=== PATIENT | male | born 1950 | race Caucasian/White ===

== ENCOUNTER → 2016-08-01 | Outpatient (CLI) | payer OTHER, BC | LOC: CIMAGING 10:19 | PROVIDERS: ATTEND Family Medicine | DX: M25.851 Other specified joint disorders, right hip (principal); M25.852 Other specified joint disorders, left hip | CPT/HCPCS: 73521-PO ==

== ENCOUNTER 2016-12-09 12:38 | Observation (INO) | payer OTHER ==
[2016-12-09 13:12] LABS: % IMMATURE GRANULYOCYTES 0.2 % (0.0-1.1); ABSOLUTE IMMATURE GRANULOCYTES 0.02 10^3/uL (0.00-0.10); ADD DIFF? NO; ADD MORPH? NO; ADD SCAN? NO; ATYPICAL LYMPHOCYTE FLAG 0 (0-99); FRAGMENT RBC FLAG 0 (0-99); HEMATOCRIT 41.8 % (40.0-51.0); LEFT SHIFT FLG 0 (0-99); LIPEMIA HEMOLYSIS FLAG 90 (0-99); MEAN CELL HEMOGLOBIN 32.6 pg (27.9-34.1); MEAN CELL HEMOGLOBIN CONCENTR. 35.9 g/dL (32.4-36.7); MEAN CELL VOLUME 90.9 fL (81.5-99.8); MEAN PLATELET VOLUME 10.7 fL (8.7-11.7); PLATELET CLUMPS FLAG 0 (0-99); PLATELET COUNT 263 10^3/uL (150-400); RED CELL DISTRIBUTION WIDTH 13.2 % (11.5-15.2)
--- NOTE | 2016-12-09 13:13 | EDPHY ---
H & P Stated Complaint: left facial pain, chest discomfort, tinglinging in left arm Time Seen by Provider: 12/09/16 12:42 HPI/ROS: Chief Complaint: Left facial weakness, chest tightness, tingling left arm HPI: 58-year-old male with a history of borderline diabetes the and infrequent migraine headaches is presenting complaining of left facial numbness and headache which began yesterday morning. Patient took 2 Aleve yesterday morning and the headache is improved but is continuing to have some left facial numbness. He also noticed last night and this morning some difficulty word finding and has been having some numbness in his left arm. He has had some mild lower chest discomfort this morning. 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 This was not associated with headache and occurred after he had been out in the heat and sleep deprived. At that time he did not have any difficulty with word finding or tingling in any of his extremities. Denies any recent illness. No fevers or chills. Some nausea but no vomiting. No shortness of breath. ROS: 10 point Review of Systems is negative except as noted in the HPI. PMH: Diabetes Social History: No smoking, occasional alcohol, no recreational drug use Family History: non-contributory Physical Exam: Gen: Awake, Alert, No Distress HEENT: Nose: no rhinorrhea Eyes: PERRLA, EOMI Mouth: Moist mucosa Neck: Supple, no JVD Chest: nontender, lungs clear to auscultation Heart: S1, S2 normal, no murmur Abd: Soft, non-tender, no guarding Back: no CVA tenderness, no midline tenderness Ext: no edema, non-tender Skin: no rash Neuro: See NIH scale. Patient has some left facial droop including his left eyelid. He has decreased sensation in his left cheek and left jaw. He is describing a very mild decreased sensation in his left forehead compared to his right however this is not nearly as significant as in his left face. He also has some left upper eyelid droop and left facial droop. He is also describing some decreased sensation below his left clavicle compared to his right. - Medical/Surgical History Hx Asthma: Yes Hx Chronic Respiratory Disease: No Hx Diabetes: No Hx Cardiac Disease: Yes Hx Renal Disease: No Hx Cirrhosis: No Hx Alcoholism: No Hx HIV/AIDS: No Hx Splenectomy or Spleen Trauma: No Other PMH: HTN. FINGER, KNEE SURGERY - Social History Smoking Status: Former smoker Constitutional: Initial Vital Signs Temperature (C) 36.6 C 12/09/16 12:46 Heart Rate 78 12/09/16 12:46 Respiratory Rate 16 12/09/16 12:46 Blood Pressure 104/65 12/09/16 12:46 O2 Sat (%) 95 12/09/16 12:46 O2 Delivery Mode Room Air Allergies/Adverse Reactions: No Known Allergies Allergy (Verified 12/09/16 12:44) Home Medications: Medication Instructions Recorded Aspirin EC [Aspirin EC 81 mg (OTC)] 81 mg PO DAILY 10/09/11 Enalapril Maleate 20 mg PO 10/09/11 Finasteride 5 mg PO 10/09/11 ALBUTEROL SULFATE 08/26/15 Losartan-Hctz 100-25 mg Tab 08/26/15 Metformin HCl 08/26/15 Temazepam 08/26/15 Albuterol [Proventil Neb] 12/09/16 Singulair 10 mg (*) 12/09/16 Medical Decision Making - Diagnostics EKG Interpretation: ECG time 12:49 p.m. sinus rhythm with a rate of 75. There is a left anterior fascicular block. Normal intervals. No acute ST or T-wave changes. ECG is unchanged from August 05, 2014. Imaging Results: Imaging Impressions Head CT 12/09/16 13:05 Impression: Normal. Results called and discussed with Yoni Kathleen MD at 12/09/2016 13:27. Imaging: Discussed imaging studies w/ physically impaired teacher Radiologist ED Course/Re-evaluation: Case discussed with Dr. Ro, neurology. He is recommending that the patient needs an urgent stroke workup. He would like me to contact the stroke service at [facility] and arrange for transport. Case discussed with Dr. Orlin Chapa, [facility] Neurology. He believes that given the duration and the paucity of symptoms, and a history of migraine in the past this is likely a atypical migraine. He is recommending the patient be transferred to medical floor for further evaluation. He does not feel that patient will require an urgent stroke workup at this time. I have discussed with Dr. Jones, hospitalist. She will accept the patient transfer for further evaluation at [facility]. - Data Points Laboratory Results: Laboratory Results 12/09/16 12:52 12/09/16 12:52 12/09/16 12/09/16 12:52 12:52 WBC 9.07 10^3/uL 10^3/uL (3.80-9.50) RBC 4.60 10^6/uL 10^6/uL (4.40-6.38) Hgb 15.0 g/dL g/dL (13.7-17.5) Hct 41.8 % % (40.0-51.0) MCV 90.9 fL fL (81.5-99.8) MCH 32.6 pg pg (27.9-34.1) MCHC 35.9 g/dL g/dL (32.4-36.7) RDW 13.2 % % (11.5-15.2) Plt Count 263 10^3/uL 10^3/uL (150-400) MPV 10.7 fL fL (8.7-11.7) Neut % (Auto) 61.7 % % (39.3-74.2) Lymph % (Auto) 28.1 % % (15.0-45.0) Steele % (Auto) 9.0 % % (4.5-13.0) Eos % (Auto) 0.8 % % (0.6-7.6) Baso % (Auto) 0.2 % L % (0.3-1.7) Nucleat RBC Rel Count 0.0 % % (0.0-0.2) Absolute Neuts (auto) 5.59 10^3/uL 10^3/uL (1.70-6.50) Absolute Lymphs (auto) 2.55 10^3/uL 10^3/uL (1.00-3.00) Absolute Monos (auto) 0.82 10^3/uL H 10^3/uL (0.30-0.80) Absolute Eos (auto) 0.07 10^3/uL 10^3/uL (0.03-0.40) Absolute Basos (auto) 0.02 10^3/uL 10^3/uL (0.02-0.10) Absolute Nucleated RBC 0.00 10^3/uL 10^3/uL (0-0.01) Immature Gran % 0.2 % % (0.0-1.1) Immature Gran # 0.02 10^3/uL 10^3/uL (0.00-0.10) Sodium 139 mEq/L mEq/L (134-144) Potassium 3.4 mEq/L L mEq/L (3.5-5.2) Chloride 101 mEq/L mEq/L (97-110) Carbon Dioxide 24 mEq/l mEq/l (22-31) Anion Gap 14 mEq/L mEq/L (8-16) BUN 27 mg/dL H mg/dL (7-23) Creatinine 1.0 mg/dL mg/dL (0.7-1.3) Estimated GFR > 60 Glucose 103 mg/dL H mg/dL (70-100) Calcium 9.5 mg/dL mg/dL (8.5-10.4) Troponin I < 0.012 ng/mL ng/mL (0.000-0.034) Departure - Departure Disposition: [facility] Inpatient Acute Clinical Impression: Transient cerebral ischemia Condition: Good Referrals: PATRIA GRAYSON [Primary Care Provider] - As per Instructions NIH Stroke Scale Date of Exam: 12/09/16 Time of Exam: 13:00 Level of Consciousness: Alert LOC Questions: Answers Both LOC Commands: Performs Both Correctly Best Gaze: Normal Visual: No Visual Loss Facial Palsy: Minor Paralysis Motor Arm-Left: No Drift Motor Arm-Right: No Drift Motor Leg-Left: No Drift Motor Leg-Right: No Drift Limb Ataxis: Absent Sensory: Mild/Mod Sensory Loss Best Language: No Aphasia Dysarthria: Normal Extinction and Inattention (Neglect): No Abnormality NIH Scale Score: 2
[2016-12-09 13:23] LABS: ANION GAP 14 mEq/L (8-16); CALCIUM 9.5 mg/dL (8.5-10.4); CARBON DIOXIDE 24 mEq/l (22-31); CHLORIDE 101 mEq/L (97-110); GLOMERULAR FILTRATION RATE > 60; GLUCOSE 103 mg/dL (70-100); POTASSIUM 3.4 mEq/L (3.5-5.2); SODIUM 139 mEq/L (134-144)
[2016-12-09 13:35] LABS: TROPONIN I < 0.012 ng/mL (0.000-0.034)
--- NOTE | 2016-12-09 15:54 | CPEKG ---
Heart Rate: 67 RR Interval: 896 P-R Interval: 176 QRSD Interval: 104 QT Interval: 412 QTC Interval: 435 P [place]: 30 QRS [place]: -59 T Wave [place]: 33 EKG Severity - ABNORMAL ECG - EKG Impression: SINUS RHYTHM EKG Impression: LEFT ANTERIOR FASCICULAR BLOCK Electronically Signed By: Johanna Mendoza 10-Dec-2016 10:26:44
[2016-12-09] MEDS ORDERED: POTASSIUM CL 20 MEQ TAB PO ONE (16:04)
--- NOTE | 2016-12-09 16:39 | GHP ---
[f rep st] HISTORY AND PHYSICAL DATE OF ADMISSION: 12/09/2016 CHIEF COMPLAINT: Left facial droop, eyelid lag. HISTORY OF PRESENT ILLNESS: A 66-year-old male with a prior history of migraines, Sinha palsy in 2011, presenting with left facial weakness. He says he has had 4 migraines in this past year. Yesterday morning at 8 a.m., he had developed a migraine with a mild left facial droop that is increased from his normal mild facial droop. He took 2 Aleve and went to bed. He ate dinner late that night and awoke feeling fine this morning. He was over at [employer] volunteering today at approximately 11 a.m., but had a hard time reading with his left eye. He could not find the words and felt that his speech was slurred. He had some tingling in the left arm and it appeared to be weaker when he was over at the urgent care clinic. When he was diagnosed with Sinha palsy, it was associated with a headache and had occurred after being in the sun for 10 hours and being sleep deprived. At that time, he did not have any difficulty word finding or any associated tingling. He noticed he was nauseated this morning with the other symptoms. For the past couple years, he has felt palpitations or a sensation in his chest that leads to coughing. Denies chest pain, shortness of breath, PND, or pillow orthopnea. The patient says his mouth will get droopy when he is tired. He has had normal p.o. intake. No fevers, chills, or sweats. REVIEW OF SYSTEMS: I completed a 10-point review of systems; negative except as noted in HPI. PAST MEDICAL HISTORY: Prediabetes, migraines, 4 this past year, Sinha palsy in 2011, chronic cough, seen by Dr. Garcia, VICENTA, grade 1 diastolic dysfunction, mild AI. PAST SURGICAL HISTORY: Right finger, left knee arthroscopic for meniscus and right knee surgery. SOCIAL HISTORY: Lives in [place]. 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 Alcohol: A glass of wine a week. No illicits. FAMILY HISTORY: Dad had a CVA in his 70s. Mother is 94, has Alzheimer's. HOME MEDICATIONS: Finasteride, losartan-hydrochlorothiazide 100-25 mg, aspirin 81 mg daily, albuterol as needed, Singulair 10 mg daily, temazepam 50 mg at bedtime p.r.n. ALLERGIES: No known drug allergies. PHYSICAL EXAMINATION: VITAL SIGNS: Temperature 35.9, blood pressure 113/73, heart rate 60s, respiration 18, 96% on room air. GENERAL: A well-appearing male sitting up in bed, in no acute distress. HEENT: PERRLA. EOMI. Oropharynx clear. CARDIOVASCULAR: Regular rate and rhythm. No murmurs, gallops, or rubs. LUNGS: Clear to auscultation. No crackles or wheezing. ABDOMEN: Soft, nontender, nondistended. Positive bowel sounds. GENITOURINARY : No suprapubic tenderness. MUSCULOSKELETAL: 5/5 upper and lower extremity strength. NEUROLOGIC: 2 through 12 intact. Decreased sensation over the left cheek compared to the right. Left eyelid no longer drooping. Has a mild left facial droop. +2 biceps patellar reflex. PSYCHIATRIC: Alert and oriented x3. IMAGING: CT head: Normal. No mass or hemorrhage. LABORATORY DATA: WBC is 9, hemoglobin 15, hematocrit 41, platelets 263. Sodium 139, potassium 3.4, chloride 101, anion gap 14, BUN is 27, creatinine is 1, glucose 103, calcium 9.5. Troponin less than 0.012. ELECTROCARDIOGRAM: Pending. ASSESSMENT/PLAN: 1. Left facial droop/left arm tingling: Differential includes atypical migraine versus Sinha palsy versus transient ischemic attack. Dr. Kathleen spoke with Dr. Ro with Neurology as well as Orlin Chapa at [facility]. Given the duration of positive symptoms, no tPA is warranted. Will further evaluate with an MRI of the brain, monitor on telemetry as well as an echocardiogram. He does report palpitations. Will have PT, OT, and speech evaluate. Check lipids. Neurology to consult in the morning. Will resume aspirin. 2. Hypertension, under good control: Will resume home medications. 3. Prediabetes: Check a hemoglobin A1c. 4. Chronic cough, controlled with inhaler and Singulair. 5. Diet: Regular. 6. Deep venous thrombosis prophylaxis: SCDs. DISPOSITION: Patient warrants observation admission given concern for possible TIA versus atypical migraine warranting further imaging and neurology consultation. /[id number]/MODL MTDD
[2016-12-09] MEDS ORDERED: ALBUTEROL 200 PUFFS/18 GM MDI IH PRN (20:57)
[2016-12-09] MEDS ORDERED: TEMAZEPAM 15 MG CAP PO SCH (21:00)
[2016-12-10 03:08] LABS: HEMOGLOBIN A1C 6.4 % (4.0-6.0)
[2016-12-10 05:16] LABS: ALANINE AMINOTRANSFERASE 41 IU/L (21-72); ALBUMIN 3.6 g/dL (3.5-5.0); ALKALINE PHOSPHATASE 50 IU/L (38-126); ANION GAP 11 mEq/L (8-16); ASPARTATE AMINOTRANSFERASE 24 IU/L (17-59); BILIRUBIN,TOTAL 0.8 mg/dL (0.1-1.4); CALCIUM 8.8 mg/dL (8.5-10.4); CARBON DIOXIDE 25 mEq/l (22-31); CHLORIDE 103 mEq/L (97-110); CHOLESTEROL 158 mg/dL (140-220); CHOLESTEROL/HDL RATIO 5.85 RATIO (1.00-4.97); CREATININE 0.9 mg/dL (0.7-1.3); GLOMERULAR FILTRATION RATE > 60; GLUCOSE 107 mg/dL (70-100); HIGH DENSITY LIPOPROTEIN 27 mg/dL (40-65); LDL/HDL RATIO 3.63 RATIO (1.00-3.64); LOW DENSITY LIPOPROTEIN 98 mg/dL (80-100); NON-HIGH DENSITY LIPOPROTEIN 131 mg/dL (90-129); POTASSIUM 3.5 mEq/L (3.5-5.2); SODIUM 139 mEq/L (134-144); TOTAL PROTEIN 5.8 g/dL (6.3-8.2); TRIGLYCERIDE 165 mg/dL (40-150); VERY LOW DENSITY LIPOPROTEINS 33 mg/dL (8-25)
[2016-12-10] MEDS ORDERED: IOPAMIDOL (ISOVUE 370) 100 ML BTL IV ONE (07:50)
[2016-12-10 08:29] VITALS: TEMP 98.4
[2016-12-10] MEDS ORDERED: HYDROCHLOROTHIAZIDE 25 MG TAB PO SCH (09:00)
[2016-12-10] MEDS ORDERED: MONTELUKAST SODIUM 10 MG TAB PO SCH (09:00)
[2016-12-10] MEDS ORDERED: ASPIRIN 81 MG CHEWABLE TAB PO SCH (09:00)
[2016-12-10] MEDS ORDERED: LOSARTAN POTASSIUM 50 MG TAB PO SCH (09:00)
[2016-12-10] MEDS ORDERED: ASPIRIN EC 81 MG TAB PO SCH (09:00)
[2016-12-10] MEDS ORDERED: FINASTERIDE 5 MG TAB PO SCH (09:00)
[2016-12-10] MEDS: metFORMIN HCL 500 MG TAB PO SCH ×2 (09:22→09:59)
[2016-12-10] MEDS ORDERED: ONDANSETRON DISINTEGRATING 4 MG TAB PO PRN (09:45)
[2016-12-10] MEDS ORDERED: ONDANSETRON 4 MG/2 ML VIAL IVP PRN (09:45)
[2016-12-10] MEDS ORDERED: ACETAMINOPHEN 325 MG TAB PO PRN (09:45)
--- NOTE | 2016-12-10 11:40 | ECHO ---
[id number] + + [address] : : [place] [address] : : [phone] + Adult Echocardiographic Report + --+ :Name: ALLEN CERNAY RStudy Date: 12/10/2016 07:44 AM : : Hospital Admission Number: [id number] Location: 3 47: :: 1950 Gender: Male Height: 69 in : :Age: 66 yrs Race: WH Weight: 180 lb : :Reason For Study: Ischemic stroke : : BSA: 2.0 meters2 : + --+ MMode/2D Measurements \T\ Calculations IVSd: 0.79 cm LVIDd: 4.7 cm FS: 48.0 % Ao root diam: LVPWd: 0.96 cm LVIDs: 2.5 cm EDV(Teich): 3.6 cm 104.1 ml LA dimension: ESV(Teich): 3.7 cm 21.5 ml EF(Teich): 79.4 % LVLd ap4: 7.6 cm SV(MOD-sp4): EDV(MOD-sp4): 33.0 ml 45.0 ml LVLs ap4: 6.4 cm ESV(MOD-sp4): 12.0 ml EF(MOD-sp4): 73.3 % Normal Measurement Values: + + :LVIDd (3.5-5.7cm) IVSd (0.6-1.1cm) LVPWd (0.6-1.1cm) Aortic Root (2.0-3.7cm)Left Atrium (1.5-4.0cm): :LV Vol(d) (76-115ml) LV Vol(s) (29-48ml) Ejec Fraction (50-65%)PV Shahid (0.6- 1.2m/s) TV Shahid (0.4-1.0m/s) : :MV E Shahid (0.8-1.0m/s)MV A Shahid (0.3-1.0m/s)LVOT Shahid (0.7-1.2m/s) Asc Ao Shahid ( 0.9-1.8m/s) : + + Doppler Measurements \T\ Calculations MV E max shahid: 78.0 cm/sec Ao V2 max: 119.4 cm/sec TR max shahid: 213.1 cm/sec MV A max shahid: 54.3 cm/sec Ao max P.7 mmHg TR max P.2 mmHg MV E/A: 1.4 RAP systole: 5.0 mmHg RVSP(TR): 23.2 mmHg Left Ventricle The left ventricle is normal in size. There is normal left ventricular wall thickness. Left ventricular systolic function is normal. Ejection Fraction = 65-70%. No regional wall motion abnormalities noted. Right Ventricle The right ventricle is normal in size and function. Atria The left atrial size is normal. The right atrium is mildly dilated. Injection of contrast documented an interatrial shunt. Mitral Valve The mitral valve is normal in structure and function. There is no evidence of mitral valve prolapse. There is no mitral valve stenosis. There is trace mitral regurgitation. Tricuspid Valve Normal tricuspid valve. There is mild tricuspid regurgitation. Right ventricular systolic pressure is normal. Aortic Valve The aortic valve is trileaflet. The aortic valve opens well. Mild aortic calcification. There is no aortic stenosis. Trace aortic regurgitation. Pulmonic Valve The pulmonic valve is normal in structure and function. Trace pulmonic valvular regurgitation. Great Vessels The aortic root is normal size. Pericardium/Pleural There is no pericardial effusion. Conclusion A complete two-dimensional transthoracic echocardiogram was performed (2D, M-mode, Doppler and color flow Doppler). Left ventricular systolic function is normal. Ejection Fraction = 65-70%. The right atrium is mildly dilated. Injection of contrast documented an interatrial shunt. There is trace mitral regurgitation. There is mild tricuspid regurgitation. Right ventricular systolic pressure is normal. Mild aortic calcification. Trace aortic regurgitation. Trace pulmonic valvular regurgitation. Final Reading Physician: Sarita Davis signed on 12/10/2016 11:39 AM Ordering Physician: Brenda Jones Performed By: Abigail Kincaid RDCS
[2016-12-10 11:57] VITALS: BP 114/72; PULSE 72; RESP 16; O2SAT 93
--- NOTE | 2016-12-10 13:17 | GCON ---
[f rep st] CONSULTATION NEUROLOGY CONSULTATION REFERRING PHYSICIAN: Brenda Jones MD CHIEF COMPLAINT: Headache and facial paresthesias. BILLING INFORMATION: 70 total minutes on the floor today reviewing the patient' s history, imaging records, and in direct counseling with the patient. 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 He has a nearly lifelong history of migraine with aura described as auras of scintillating scotomas followed by unilateral throbbing headaches. He typically has 5 a year. Then, in 2011, the patient had an episode of left-sided Sinha's palsy. Interestingly, since his Sinha's palsy, he typically gets left facial paresthesias with his migraine with aura after having Sinha's palsy. It happens almost every single time he has a migraine. 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 He was feeling dehydrated and was fairly hot with poor air quality Friday. The patient began having his typical migraine while on the trail of a scintillating scotoma followed by a headache. He began feeling paresthesias which he describes as actually not numbness but a burning on the left side of his face. This is typical for him, so he went home and went to sleep. The next morning he got up, which would be December 09. The headache was gone, but he felt a little bit of nausea and troubles finding words. He also related that during the acute migraine, his finger tips on the left hand were tingling. This had also resolved by Friday morning. Because of persistent symptoms, especially the word-finding problems / "brain fog" on Friday, he came to the ER. He saw Dr. Kathleen at [facility] Emergency Department. I spoke to Dr. Kathleen and heard the symptoms and requested a stroke alert be initiated with telemedicine to exclude an acute neurovascular event that needed acute intervening. A head CT had been done at that point and was negative. Dr. Kathleen consulted with [facility] for an acute stroke alert. Based on that discussion, he was admitted for further evaluation at [facility]. MRI brain was entirely normal. There were no diffusion-weighted abnormalities to suggest acute infarct. He has had normal sinus rhythm on telemetry as far as I have been reported to. He does get palpitations from time to time which we will address further down in the assessment and plan. He had CT angio of the head and neck which showed no acute thrombosis or dissection. He did have a small aneurysmal change in the right distal internal carotid artery, likely incidental. He is completely back to baseline and feels well now. In his mind, this was typical of all his migraines. The only reason he came to the emergency department was the next-day brain fog symptoms which was concerning to him. For past medical history, social history, family history, home medications, and allergies, please see Dr. Jones's H and P. REVIEW OF SYSTEMS: Ten-point review of systems was done and was only pertinent to the HPI. PHYSICAL EXAMINATION: VITAL SIGNS: 114/72, temperature 36.9, heart rate 72, respirations 16. NEUROLOGIC: Higher mental function: Awake and alert, no acute distress. Very pleasant. Oriented, alert, lucid. No aphasia. Cranial nerve exam: No dysarthria, normal 2 through 7, 11, and 12. Motor exam: Normal strength, tone, and deep tendon reflexes throughout. Sensory exam normal to light touch throughout. Coordination normal in upper and lower extremities. IMPRESSION AND PLAN: 1. Complex migraine. 2. 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 3. Palpitations. Overall, my impression is that the patient experienced a complex migraine. In fact, yesterday, his migraine symptoms were not that much different than his usual migraine. I think he had the typical next-day after effects from migraines that many patients report, including trouble thinking and feeling nauseous. As he is 66 and has vascular risk factors, I recommend we complete the TIA evaluation. Specifically, he should have a 30-day outpatient event monitor and follow up with Cardiology. He can continue aspirin daily. In regard to the likely incidental aneurysm, I recommend he follow up with Dr. Jesse Huerta from [facility] for further evaluation and treatment. From my view, he can discharge home any time. He can follow up with Neurology for any further questions or concerns or problems with migraines. I have given him my contact information. We will sign off and follow up as needed. Please do not hesitate to call if there are any further questions or changes in neurologic status. Thank you for this consultation. /[id number]/MODL MTDD
--- NOTE | 2016-12-10 19:23 | GDS ---
[f rep st] DISCHARGE SUMMARY DIAGNOSES: 1. Acute migraine headache with neurologic complications. 2. Possible transient ischemic attack. A 30 day cardiac event monitor has been ordered. 3. Hypertension, currently under control. 4. Prediabetic with a hemoglobin A1c pending. CONSULTATIONS: Neurology with Dr. Garrett Ro. PROCEDURES: 1. Echocardiogram showing an EF of 65% to 70%. Right atrium is mildly dilated. Interatrial shunt is noted. There is a trace of mitral regurg, trace tricuspid regurg. RVSP is normal. Trace aortic regurgitation. 2. Brain MRI showing normal MRI of the brain without contrast. 3. CTA of the head and neck showed a normal [facility]. A small aneurysm in the right intern product marketing manager al carotid artery, and is a small amount of plaque formation on the left without flow limitation. HOSPITAL COURSE: A 66-year-old male presented with a left facial droop and a headache. There was c oncern regarding a TIA, and a TIA workup was performed, showing negative CTA of the head and neck, a nd a negative MRI scan showing only normal brain. He had a left facial droop, but also had a prior Sinha's palsy on that, but the left facial droop had resolved at the time of discharge. Neurologic c onsultation felt that the findings were consistent with a migraine syndrome and some post residual f indings. Despite that and due to the interatrial shunt, a 30 day cardiac event monitor will be orde red. DISCHARGE MEDICATIONS: Continue medications of his usual home medications are as follows: Restoril 15 mg h.s., montelukast 10 mg daily, Glucophage 500 mg b.i.d., Proscar 5 mg daily, Cozaar 50 mg bella ly, ASA 81 mg daily, hydrochlorothiazide 25 mg daily, albuterol inhaler 1-2 puffs q.4 hours p.r.n. PLAN: [facility] will send the gentleman a 30 day fashion buyer, which has been ord ered by this physician. He will follow up with Dr. Garrett Ro in 2-4 weeks, and Dr. Yung Rowe as needed. He can also follow up with Dr. Jesse Huerta regarding the carotid aneurysm. TIME: This discharge required 45 minutes, greater than 50% to juvenile counselor, coordinate his care, and arr aziza for his fashion buyer. /[id number]/MODL
--- NOTE | 2016-12-11 09:19 | ASDISCHSUM ---
Discharge Information Plan Status:Home with No Needs Medically Cleared to Leave: Discharge Date: CM D/C Disposition:Home, Routine, Self-Care ADT D/C Disposition: Projected Discharge Date: Transportation at D/C: Discharge Delay Reason: Follow-Up Date: Discharge Slot: Final Diagnosis: Placement Information Patient Contact Information Contact Name:DERICK Relationship: Address:[address] Work Phone: City:[facility] Phone: State/Zip Code:[place] [address] Email: Financial Information Financial Class: Primary Plan Desc:MEDICARE OUTPATIENT Primary Plan Number:[id number] Secondary Plan Desc:ZACK ORNELASNITY Secondary Plan Number:[id number] Assessment Information Intervention Information Intervention Type:*MORRISON-Signed Date of Service:12/10/2016 12:11 PM Patient Type:Observation Staff Member:Dottie Martin Hours: Discipline: Severity: Comment:
--- NOTE | 2016-12-13 12:50 | CPEKG ---
Heart Rate: 75 RR Interval: 800 P-R Interval: 172 QRSD Interval: 104 QT Interval: 368 QTC Interval: 411 P [place]: 37 QRS [place]: -60 T Wave [place]: 40 EKG Severity - ABNORMAL ECG - EKG Impression: SINUS RHYTHM EKG Impression: LEFT ANTERIOR FASCICULAR BLOCK Electronically Signed By: Clayton Page 14-Dec-2016 08:33:43
== END 2016-12-10 15:31 | disposition home or self-care (01) ==
LOC: CED 12:38 → CEDHOLD 14:15 → F3N 15:19
PROVIDERS: ADMIT Internal Medicine; ATTEND Internal Medicine
DX: G43.119 Migraine with aura, intractable, without status migrainosus (principal); R47.89 Other speech disturbances; I10 Essential (primary) hypertension; R73.03 Prediabetes; Z87.891 Personal history of nicotine dependence
CPT/HCPCS: 70450; 70496; 70498; 70551; 92523; 93005; 93306; 97161; 97165; 99285; G0378; G8978; G8979; G8980; G8987; G8988; G8989; G8999; G9158; G9186; Q9967; 80048-PO; 84484-PO; 85025-PO

== ENCOUNTER 2016-12-19 18:35 | Inpatient (IN) | payer OTHER ==
--- NOTE | 2016-12-19 19:30 | CPEKG ---
Heart Rate: 85 RR Interval: 706 P-R Interval: 156 QRSD Interval: 102 QT Interval: 376 QTC Interval: 447 P [place]: 35 QRS [place]: -69 T Wave [place]: 42 EKG Severity - ABNORMAL ECG - EKG Impression: SINUS RHYTHM EKG Impression: LEFT ANTERIOR FASCICULAR BLOCK Electronically Signed By: Clayton Page 20-Dec-2016 12:20:31
--- NOTE | 2016-12-19 19:32 | EDPHY ---
HPI/HX/ROS/PE/MDM Narrative: CHIEF COMPLAINT: Ventricular tachycardia on Holter monitor HISTORY OF PRESENT ILLNESS: The patient is a 66 y/o male arriving with his at the referral of his pellet preparation operator due to a 29-second episode of ventricular tachycardia witnessed on his Holter monitor today. He has a medical history that includes complex migraines, hypertension, and prediabetes. He was admitted 10 days ago for TIA symptoms as well as migraine symptoms and discharged home on a Holter monitor for 30 days. Today, he stood up to walk to the bathroom around 17:15 and felt fatigued and dizzy with some heart pounding for a few seconds. He felt completely normal before and following this episode. His pellet preparation operator called him tell him to go to the ED immediately for evaluated. The patient denies prior cardiac history. No fever, chills, chest pain, shortness of breath, vomiting, diarrhea, urinary complaints, headache, lightheadedness. REVIEW OF SYSTEMS: Aside from elements discussed in the HPI, a comprehensive 10-point review of systems was reviewed and is negative. PAST MEDICAL HISTORY: Sinha's palsy 2012, complex migraines, cataract, neck aneurysm, prediabetes, hypertension, diastolic dysfunction, VICENTA, chronic cough, DVT SOCIAL HISTORY: at bedside. 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 Nonsmoker. No marijuana or illicit drug use. Occasional alcohol use. PCP: Dr. Rowe. Portal Developer: Dr. Gurrola, Territory Manager General Sales: Dr. Garcia. Prior medical records reviewed including admission and discharge notes from for TIA vs. complex migraine symptoms. VITAL SIGNS: Reviewed by me GENERAL: Well-developed, well-nourished, resting comfortably in no respiratory distress. HEENT: Atraumatic. Eyes: No icterus, no injection. Mouth: moist mucous membranes. No erythema or lesions. Neck: supple with no adenopathy. LUNGS: Clear to auscultation bilaterally, no wheezes, rhonchi or rales. CARDIAC: Regular rate and rhythm, no rubs, murmurs or gallops. ABDOMEN: Soft, nontender, nondistended, bowel sounds normal. BACK: No CVA tenderness. EXTREMITIES: No trauma. No edema. Range of motion is normal throughout. NEURO: Alert and oriented, grossly nonfocal. SKIN: Warm and dry, no rash. PSYCHIATRIC: Normal mentation, no agitation. Portions of this note were transcribed by a medical information officer. I personally performed a history, physical exam, medical decision making, and confirmed accuracy of information the transcribed note. ED Course: EKG was obtained. This demonstrates normal sinus rhythm. No acute ST or T- wave changes. Laboratory evaluation demonstrates normal electrolytes, negative troponin. Patient's course was discussed Dr. Renaldo Gurrola. He will be admitted primarily to the cardiology service for further evaluation of his ventricular tachycardia. MDM: Differential diagnoses for the patient's presentation was considered including but not limited to sinus tachycardia, ventricular tachycardia, ventricular fibrillation, artifact, acute coronary syndrome, electrolyte abnormalities. - Data Points Laboratory Results: Laboratory Results 12/19/16 19:38 12/19/16 19:38 12/19/16 12/19/16 12/19/16 19:38 19:38 19:38 WBC 11.01 10^3/uL H 10^3/uL (3.80-9.50) RBC 4.81 10^6/uL 10^6/uL (4.40-6.38) Hgb 15.7 g/dL g/dL (13.7-17.5) Hct 44.6 % % (40.0-51.0) MCV 92.7 fL fL (81.5-99.8) MCH 32.6 pg pg (27.9-34.1) MCHC 35.2 g/dL g/dL (32.4-36.7) RDW 13.0 % % (11.5-15.2) Plt Count 254 10^3/uL 10^3/uL (150-400) MPV 11.0 fL fL (8.7-11.7) Neut % (Auto) 64.0 % % (39.3-74.2) Lymph % (Auto) 25.7 % % (15.0-45.0) Kingfisher % (Auto) 8.1 % % (4.5-13.0) Eos % (Auto) 1.6 % % (0.6-7.6) Baso % (Auto) 0.3 % % (0.3-1.7) Nucleat RBC Rel Count 0.0 % % (0.0-0.2) Absolute Neuts (auto) 7.05 10^3/uL H 10^3/uL (1.70-6.50) Absolute Lymphs (auto) 2.83 10^3/uL 10^3/uL (1.00-3.00) Absolute Monos (auto) 0.89 10^3/uL H 10^3/uL (0.30-0.80) Absolute Eos (auto) 0.18 10^3/uL 10^3/uL (0.03-0.40) Absolute Basos (auto) 0.03 10^3/uL 10^3/uL (0.02-0.10) Absolute Nucleated RBC 0.00 10^3/uL 10^3/uL (0-0.01) Immature Gran % 0.3 % % (0.0-1.1) Immature Gran # 0.03 10^3/uL 10^3/uL (0.00-0.10) Sodium 136 mEq/L mEq/L (134-144) Potassium 3.4 mEq/L L mEq/L (3.5-5.2) Chloride 100 mEq/L mEq/L (97-110) Carbon Dioxide 22 mEq/l mEq/l (22-31) Anion Gap 14 mEq/L mEq/L (8-16) BUN 23 mg/dL mg/dL (7-23) Creatinine 1.0 mg/dL mg/dL (0.7-1.3) Estimated GFR > 60 Glucose 105 mg/dL H mg/dL (70-100) Calcium 9.5 mg/dL mg/dL (8.5-10.4) Magnesium 1.9 mg/dL mg/dL (1.6-2.3) Troponin I < 0.012 ng/mL ng/mL (0.000-0.034) NT-Pro-B Natriuret Pep 38 pg/mL pg/mL (0-125) Medications Given: Temazepam (Restoril) 15 mg PO HS JAGDEEP Stop: 06/17/17 22:29 Last Admin: 12/19/16 23:04 Dose: 15 mg Discontinued Medications Aspirin (Aspirin) 324 mg PO EDNOW ONE Stop: 12/19/16 19:35 Last Admin: 12/19/16 19:47 Dose: 324 mg Magnesium Sulfate/Dextrose (Magnesium Sulf 1 Gm (Premix)) 100 mls @ 100 mls/hr IV ONCE ONE Stop: 12/19/16 23:29 Last Admin: 12/19/16 22:22 Dose: 100 mls Potassium Chloride (Klor-Con) 40 meq PO ONCE ONE Stop: 12/19/16 20:39 Last Admin: 12/19/16 20:55 Dose: 40 meq General Initial Vital Signs: Initial Vital Signs Temperature (C) 37 C 12/19/16 18:42 Heart Rate 95 12/19/16 18:42 Respiratory Rate 18 12/19/16 18:42 Blood Pressure 106/78 12/19/16 18:42 O2 Sat (%) 96 12/19/16 18:42 O2 Delivery Mode Room Air Allergies/Adverse Reactions: No Known Allergies Allergy (Verified 12/09/16 12:44) Home Medications: Medication Instructions Recorded Aspirin EC [Aspirin EC 81 mg (*)] 81 mg PO DAILY 12/09/16 Finasteride [Proscar 5 MG (*)] 5 mg PO DAILY 12/09/16 Hydrochlorothiazide [HCTZ (*)] 25 mg PO DAILY 12/09/16 Losartan Potassium [Cozaar 50 mg 100 mg PO DAILY 12/09/16 (*)] Montelukast Sodium [Singulair 10 10 mg PO DAILY 12/09/16 mg (*)] Temazepam [Restoril 15 MG (*)] 15 mg PO HS 12/09/16 metFORMIN HCL [Glucophage 500 mg 500 mg PO BIDMEAL 12/09/16 (*)] Departure - Departure Disposition: [facility] Acute Clinical Impression: Ventricular tachycardia, Lightheadedness Condition: Fair Report Scribed for: Isabel Theodore Report Scribed by: Robyn Wren Date of Report: 12/19/16 Time of Report: 19:35
[2016-12-19] MEDS ORDERED: ASPIRIN 81 MG CHEWABLE TAB PO ONE (19:34)
[2016-12-19 19:44] LABS: % IMMATURE GRANULYOCYTES 0.3 % (0.0-1.1); ABSOLUTE IMMATURE GRANULOCYTES 0.03 10^3/uL (0.00-0.10); ADD DIFF? NO; ADD MORPH? NO; ADD SCAN? NO; ATYPICAL LYMPHOCYTE FLAG 0 (0-99); FRAGMENT RBC FLAG 0 (0-99); HEMATOCRIT 44.6 % (40.0-51.0); HEMOGLOBIN 15.7 g/dL (13.7-17.5); LEFT SHIFT FLG 0 (0-99); LIPEMIA HEMOLYSIS FLAG 90 (0-99); MEAN CELL HEMOGLOBIN 32.6 pg (27.9-34.1); MEAN CELL HEMOGLOBIN CONCENTR. 35.2 g/dL (32.4-36.7); MEAN CELL VOLUME 92.7 fL (81.5-99.8); PLATELET CLUMPS FLAG 0 (0-99); PLATELET COUNT 254 10^3/uL (150-400); RED BLOOD CELL COUNT 4.81 10^6/uL (4.40-6.38)
[2016-12-19 20:12] LABS: ANION GAP 14 mEq/L (8-16); CALCIUM 9.5 mg/dL (8.5-10.4); CARBON DIOXIDE 22 mEq/l (22-31); CHLORIDE 100 mEq/L (97-110); GLOMERULAR FILTRATION RATE > 60; GLUCOSE 105 mg/dL (70-100); POTASSIUM 3.4 mEq/L (3.5-5.2); SODIUM 136 mEq/L (134-144)
[2016-12-19 20:23] LABS: TROPONIN I < 0.012 ng/mL (0.000-0.034)
[2016-12-19] MEDS ORDERED: POTASSIUM CL 20 MEQ TAB PO ONE (20:38)
[2016-12-19] MEDS ORDERED: ONDANSETRON 4 MG/2 ML VIAL IVP PRN (20:50)
[2016-12-19] MEDS ORDERED: ACETAMINOPHEN 325 MG TAB PO PRN (20:50)
[2016-12-19] MEDS ORDERED: ONDANSETRON DISINTEGRATING 4 MG TAB PO PRN (20:50)
[2016-12-19] MEDS ORDERED: MAGNESIUM SULF 1 GM/DEXTROSE 100 ML IV ONE (22:30)
[2016-12-19] MEDS: TEMAZEPAM 15 MG CAP PO SCH (23:04)
[2016-12-20] MEDS ORDERED: metFORMIN HCL 500 MG TAB PO SCH (08:00)
[2016-12-20 08:27] LABS: ANION GAP 11 mEq/L (8-16); CARBON DIOXIDE 23 mEq/l (22-31); CHLORIDE 103 mEq/L (97-110); CREATININE 0.9 mg/dL (0.7-1.3); GLOMERULAR FILTRATION RATE > 60; GLUCOSE 97 mg/dL (70-100); SODIUM 137 mEq/L (134-144)
[2016-12-20] MEDS: FINASTERIDE 5 MG TAB PO SCH (10:04)
[2016-12-20] MEDS: LOSARTAN POTASSIUM 50 MG TAB PO SCH (10:04)
[2016-12-20] MEDS: ASPIRIN EC 81 MG TAB PO SCH (10:04)
[2016-12-20] MEDS: MONTELUKAST SODIUM 10 MG TAB PO SCH (10:05)
[2016-12-20] MEDS ORDERED: diphenhydrAMINE 25 MG CAP PO ONE (10:15)
[2016-12-20] MEDS ORDERED: TEMAZEPAM 15 MG CAP PO PRN (10:15)
[2016-12-20] MEDS ORDERED: ASPIRIN EC 325 MG TAB PO ONE (10:15)
[2016-12-20] MEDS ORDERED: FAMOTIDINE 20 MG TAB PO ONE (10:15)
[2016-12-20] MEDS ORDERED: NITROGLYCERIN 0.4 MG BTL SL PRN ×2 (10:15→11:51)
[2016-12-20] MEDS ORDERED: DIAZEPAM 5 MG TAB PO ONE (10:15)
--- NOTE | 2016-12-20 10:23 | PDPROPOC ---
Sedation Plan of Care Sedation Plan of Care: vital signs stable, mental status noted, patient educated of risks, benefits, alternatives, patient can tolerate sedation ASA Classification: ASA 2 Planned drugs: fentanyl, midazolam Mallampati Score: Class 2 Mallampati Reference Image: Patient passed 3-3-2 rule?: Yes
--- NOTE | 2016-12-20 10:24 | PDHPUP ---
History & Physical Update H&P update statement: This history and physical update is based on an assessment of the patient which was completed after admission or registration (within 24 hours), but prior to the surgery/procedure. H&P update: H&P reviewed & patient examined, no change in patient's condition since H&P completed
[2016-12-20] MEDS ORDERED: LIDOCAINE 1% 300 MG/30 ML SDV ONE (10:27)
[2016-12-20] MEDS ORDERED: IOPAMIDOL (ISOVUE-370) 150 ML BTL IV ONE (10:27)
[2016-12-20] MEDS ORDERED: MIDAZOLAM 2 MG/2 ML VIAL ONE ×2 (10:27→11:23)
[2016-12-20] MEDS ORDERED: fentaNYL 100 MCG/2 ML INJ ONE ×2 (10:27→11:23)
[2016-12-20] MEDS: NS 1,000 ML IV SCH ×2 (10:41→13:33)
[2016-12-20 10:50] LABS: PROTIME(PATIENT) 13.1 SEC (12.0-15.0)
[2016-12-20 10:51] LABS: APTT 34.1 SEC (23.0-38.0)
--- NOTE | 2016-12-20 10:53 | ASMTCMCOM ---
CM Note CM Note Notes: CM reviewed chart, pt is a 66 y/o male admitted w/ ventricular tachycardia. Pt is having a cardiac cath this AM. Pt has a supportive . Pt D/C needs TBD at this time and CM will follow after procedure today. No therapies ordered. Anticipating independent D/C when medically stable. Date Signed: 12/20/2016 10:52 AM Electronically Signed By:ANNA MARIE Hill
--- NOTE | 2016-12-20 11:00 | GHP ---
[f rep st] HISTORY AND PHYSICAL DATE OF ADMISSION: 12/19/2016 CHIEF COMPLAINT: Wide-complex tachycardia. HISTORY OF PRESENT ILLNESS: This is a 66-year-old gentleman with no known history of coronary artery disease or other cardiac conditions. In speaking to him, he has had occasional lightheadedness but nothing on a consistent basis. He was admitted 2 weeks ago for a complex migraine. Echocardiogram s howed normal LV function with a positive bubble study. He had a 30-day monitor placed. Last night a pparently he had 30 seconds of a wide-complex tachycardia suspicious for ventricular tachycardia. It lasted 29 seconds and spontaneously converted. He was advised to come to the emergency room. He guerrero s been here overnight in the hospital. Doing well. He is without further problems. In speaking to him, he denies any ongoing chest pain, syncope. He regularly walks without any chest pain, shortness of breath or other issues. He is a 66-year-old male with "pre diabetes" on metformin. He has a his tory of hypertension. He is not on any cholesterol-lowering medicine. He has never been told he has hyperlipidemia. He otherwise feels well. He denies any fever, chills, nausea, vomiting, GI, or complaints. REVIEW OF SYSTEMS: Ten-point review of systems is negative except for that noted in the HPI. PAST MEDICAL HISTORY: Pre diabetes, hypertension, migraines, Sinha's palsy. PAST SURGICAL HISTORY: Nonsignificant. 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 He is and lives with his . He does not have alcohol abu se issues. A nonsmoker. FAMILY HISTORY: No early coronary vascular disease. PHYSICAL EXAMINATION: VITAL SIGNS: Blood pressure is 114/72, pulse rate 86 and afebrile. GENERAL: He is a middle-aged male, in no acute distress. He is alert and oriented x3. HEENT: Negative. Mo uth and oropharynx were moist. Back, CV and chest wall without palpable tenderness. No skin lesions. CARDIOVASCULAR: Regular rate and rhythm without murmurs, gallops, or rubs. ABDOMEN: Soft and nontender. MUSCULOSKELETAL: No c yanosis, clubbing or edema. LABS: White count 9, hemoglobin 15. Potassium 3.5, creatinine 0.9. Cholesterol 158, LDL cholestero l 98, HDL cholesterol 27. ASSESSMENT: 1. Sustained wide-complex tachycardia suspicious for ventricular tachycardia. The patient without s yncope or clearcut signs of acute coronary syndrome. His initial troponin is normal. He had an echo cardiogram 2 weeks ago showing normal left ventricular function and nonsignificant valvular heart dis ease with possible interatrial shunt by bubble study. In speaking to him, he has had no acute shepherd ry syndrome type symptomatology. He does have significant risk factors of age, pre diabetes, hyperte nsion. I discussed our options of noninvasive versus invasive strategy. At this point, I have recom mended cardiac catheterization and percutaneous coronary intervention if indicated. The relative pro cedure risks, benefits, complications, alternatives discussed with the patient. He understands and a ccepts and wishes to proceed. I also spoke to his over the phone and answered her questions as well. He is comfortable and stable. His metformin has been held. 2. Pre diabetes, on metformin. Held today prior to catheterization. 3. Hypertension. Patient on losartan. PLAN: Cardiac catheterization today. Patient has been n.p.o. with his metformin withheld. He has h ad CAT scans before without any allergic reactions. He understands the risks of the cath and PCI if needed. Further care depending on the results of his cardiac cath. EPS consultation will be arrange d as needed. /[id number]/MODL
--- NOTE | 2016-12-20 11:43 | PDDXCAT ---
Diagnostic Cath Note - . Date: 12/20/16 Bark Tanner: Charles Indication: Non-sustained (<30 sec) polymorphic ventricular tachycardia - Procedure Access: right groin Procedure: left heart catheterization, coronary angiography, left ventriculogram , right heart catheterization - Materials Left Heart Cath size: 6F Left Heart Cath materials: standard multipack (JL4, JR4, pigtail) Right Heart Cath size: 7F - Findings-Left Heart Catheterization LM: 1. normal LAD: 1. diffuse mild irregs with distal 75% lesion LCX: 1.diffuse mild irregs RCA: 1. large dominant rca with 75% mid pda lesion EDP: 1. 12 mmhg( no av gradient) LVEF: normal size lv with lvef 65% and no rwma - Findings-Right Heart Catheterization RA: 15mmhg RV: 37/12 mmhg PA: 35/13 mmhg AO: 103/60 mmhg CO: 6.7 lt/min CI: 3.45 lt/min Complications: none Estimated blood loss: <50ml Closure method: manual pressure Assessment: 1. cad..diffuse mild irrega with distal lad and pda 75% stenosis in , or= 2.0mm vessels. 2. normal lvef without rwm. 3.normal right and left heart cath without significant shunt on oximetry Plan: 1. willl begin beta rudolph and follow rhythm on tele...case d/w dr. butler and kris 2. pt will f/u with dr ponce next week to discuss EP options Patient Problems: Problems Problem Status Onset Lightheadedness Acute Ventricular tachycardia Acute Migraine headache Acute Transient cerebral ischemia Acute
[2016-12-20] MEDS ORDERED: ATROPINE SULFATE 1 MG/10 ML SYR ONE (11:48)
[2016-12-20] MEDS ORDERED: OXYCODONE/APAP 5/325 TAB PO PRN (11:51)
[2016-12-20] MEDS ORDERED: HYDROCODONE/APAP 5/325 TAB PO PRN (11:51)
[2016-12-20] MEDS ORDERED: ATROPINE SULFATE 1 MG/10 ML SYR IVP PRN (11:51)
[2016-12-20] MEDS ORDERED: ONDANSETRON 4 MG/2 ML VIAL IVP PRN (11:51)
[2016-12-20] MEDS: METOPROLOL TARTRATE 25 MG TAB PO SCH ×2 (13:34→23:57)
[2016-12-20] MEDS: TEMAZEPAM 15 MG CAP PO SCH (20:23)
[2016-12-21 08:28] VITALS: BP 110/64; PULSE 70; RESP 18; TEMP 98.1; O2SAT 96
[2016-12-21] MEDS: ASPIRIN EC 81 MG TAB PO SCH (08:41)
[2016-12-21] MEDS: FINASTERIDE 5 MG TAB PO SCH (08:44)
[2016-12-21] MEDS: MONTELUKAST SODIUM 10 MG TAB PO SCH (08:46)
[2016-12-21] MEDS: LOSARTAN POTASSIUM 50 MG TAB PO SCH (08:46)
[2016-12-21] MEDS: METOPROLOL TARTRATE 25 MG TAB PO SCH (08:49)
[2016-12-21] MEDS ORDERED: ATORVASTATIN CALCIUM 40 MG TAB PO SCH (09:00)
--- NOTE | 2016-12-21 09:56 | ASMTCMCOM ---
CM Note CM Note Notes: [facility] RN confirms that Pt. is independent. Today Pt. to d/c independently to . Date Signed: 12/21/2016 09:55 AM Electronically Signed By:Keri Gomez LCSW
--- NOTE | 2016-12-21 17:03 | ASDISCHSUM ---
Discharge Information Plan Status:Home with No Needs Medically Cleared to Leave: Discharge Date:12/21/2016 11:34 AM CM D/C Disposition:Home, Routine, Self-Care ADT D/C Disposition:Home, Routine, Self-Care Projected Discharge Date:12/21/2016 12:00 AM Transportation at D/C:Family Discharge Delay Reason: Follow-Up Date:12/21/2016 12:00 AM Discharge Slot: Final Diagnosis: Placement Information Patient Contact Information Contact Name:DERICK Relationship: Address:[address] [place] Work Phone: [facility] Phone: [facility]/Zip Code:[place] [address] Email: Financial Information Financial Class: Primary Plan Desc:MEDICARE OUTPATIENT Primary Plan Number:[id number] Secondary Plan Desc:[employer]IRE[employer] INDEMNITY Secondary Plan Number:[id number] Assessment Information [facility] CM Progress Note CM Note CM Note Notes: CM reviewed chart, pt is a 66 y/o male admitted w/ ventricular tachycardia. Pt is having a cardiac cath this AM. Pt has a supportive . Pt D/C needs TBD at this time and CM will follow after procedure today. No therapies ordered. Anticipating independent D/C when medically stable. Date Signed: 12/20/2016 10:52 AM Electronically Signed By:ANNA MARIE Hill [facility] CM Progress Note CM Note CM Note Notes: Shiva LOVING confirms that Pt. is independent. Today Pt. to d/c independently to . Date Signed: 12/21/2016 09:55 AM Electronically Signed By:Keri Gomez LCSW Intervention Information Intervention Type:*MORRISON-Signed Date of Service:12/20/2016 10:14 AM Patient Type:Observation Staff Member:Dottie Martin Hours: Discipline: Severity: Comment: Intervention Type:*Occurence 72 Date of Service:12/19/2016 08:50 PM Patient Type:Inpatient Staff Member:INDER Khan, Swathi Hours: Discipline: Severity: Comment:[facility] 72 for 12/19/2016 as patient dischr aed 12/21/2016 09:41 (< 2 MN LOS after patient admission status changed from observation to inpatient status).
== END 2016-12-21 11:34 | disposition home or self-care (01) | DRG 287 ==
LOC: F2W 21:14 → OBSVTOIN 12-20 14:35
PROVIDERS: ADMIT Internal Medicine Cardiovascular Disease; ATTEND Internal Medicine Cardiovascular Disease
DX: I47.2 Ventricular tachycardia (principal); R73.03 Prediabetes; I10 Essential (primary) hypertension
CPT/HCPCS: G0378; J0461; J1644; J2250; J3010; J3475; Q9967

== ENCOUNTER 2016-12-30 06:55 | Observation (INO) | payer OTHER ==
[2016-12-30] MEDS ORDERED: NS 1,000 ML IV ONE (07:02)
[2016-12-30] MEDS ORDERED: HEPARIN 10,000 UNIT/10 ML MDV ONE (07:24)
[2016-12-30] MEDS ORDERED: LIDOCAINE 1% 300 MG/30 ML SDV ONE (07:24)
[2016-12-30] MEDS ORDERED: ISOPROTERENOL HCL/D5W 0.2 MG/50 ML BAG IV ONE (07:25)
[2016-12-30] MEDS ORDERED: BUPIVACAINE 0.5% 30 ML SDV ONE (07:25)
--- NOTE | 2016-12-30 07:25 | CPEKG ---
Heart Rate: 84 RR Interval: 714 P-R Interval: 148 QRSD Interval: 100 QT Interval: 380 QTC Interval: 450 P [place]: 5 QRS [place]: -63 T Wave [place]: 33 EKG Severity - ABNORMAL ECG - EKG Impression: SINUS RHYTHM EKG Impression: LEFT ANTERIOR FASCICULAR BLOCK Electronically Signed By: Clayton Page 30-Dec-2016 08:56:07
[2016-12-30 07:40] LABS: % IMMATURE GRANULYOCYTES 0.3 % (0.0-1.1); ABSOLUTE IMMATURE GRANULOCYTES 0.02 10^3/uL (0.00-0.10); ADD DIFF? NO; ADD MORPH? NO; ADD SCAN? NO; ATYPICAL LYMPHOCYTE FLAG 10 (0-99); FRAGMENT RBC FLAG 0 (0-99); HEMATOCRIT 39.8 % (40.0-51.0); HEMOGLOBIN 14.1 g/dL (13.7-17.5); LEFT SHIFT FLG 0 (0-99); LIPEMIA HEMOLYSIS FLAG 90 (0-99); MEAN CELL HEMOGLOBIN CONCENTR. 35.4 g/dL (32.4-36.7); MEAN CELL VOLUME 93.2 fL (81.5-99.8); MEAN PLATELET VOLUME 10.8 fL (8.7-11.7); PLATELET CLUMPS FLAG 10 (0-99); PLATELET COUNT 230 10^3/uL (150-400); RED BLOOD CELL COUNT 4.27 10^6/uL (4.40-6.38); RED CELL DISTRIBUTION WIDTH 13.2 % (11.5-15.2)
[2016-12-30 07:49] LABS: INR 0.96 (0.83-1.16); PROTIME(PATIENT) 12.7 SEC (12.0-15.0)
[2016-12-30 07:50] LABS: APTT 31.9 SEC (23.0-38.0)
[2016-12-30 08:02] LABS: ANION GAP 11 mEq/L (8-16); CALCIUM 9.2 mg/dL (8.5-10.4); CARBON DIOXIDE 22 mEq/l (22-31); CHLORIDE 107 mEq/L (97-110); CREATININE 0.9 mg/dL (0.7-1.3); GLOMERULAR FILTRATION RATE > 60; GLUCOSE 116 mg/dL (70-100); POTASSIUM 4.1 mEq/L (3.5-5.2); SODIUM 140 mEq/L (134-144)
--- NOTE | 2016-12-30 08:19 | PDANEPAE ---
ANE History of Present Illness single VT s/p monitoring for poss stroke sx ANE Past Medical History - Cardiovascular History Hx Hypertension: Yes Hx Arrhythmias: Yes Hx Chest Pain: No Hx Coronary Artery / Peripheral Vascular Disease: No Hx CHF / Valvular Disease: No Hx Palpitations: Yes - Pulmonary History Hx COPD: No Hx Asthma/Reactive Airway Disease: Yes Hx Recent Upper Respiratory Infection: No Hx Oxygen in Use at Home: No Hx Sleep Apnea: No - Endocrine History Hx Diabetes: No Hypothyroid: No Hyperthyroid: No - Renal History Hx Renal Disorders: No - Liver History Hx Hepatic Disorders: No - Neurological & Psychiatric Hx Hx Neurological and Psychiatric Disorders: Yes Neurological / Psychiatric History Comment: prev bells palsy - Cancer History Hx Cancer: No - Chronic Pain History Chronic Pain: No ANE Review of Systems Review of Systems: - Exercise capacity Exercise capacity: <4 METS METS Comment: active until 1 yr ago - Systems Constitutional: Reports: malaise ANE Patient History - Allergies Allergies/Adverse Reactions: No Known Allergies Allergy (Verified 12/09/16 12:44) - Home Medications Home Medications: Aspirin EC [Aspirin EC 81 mg (*)] 81 mg PO DAILY 12/09/16 [Last Taken 12/19/16] Finasteride [Proscar 5 MG (*)] 5 mg PO DAILY 12/09/16 [Last Taken 12/19/16] Hydrochlorothiazide [HCTZ (*)] 25 mg PO DAILY 12/09/16 [Last Taken 12/19/16] Losartan Potassium [Cozaar 50 mg (*)] 100 mg PO DAILY 12/09/16 [Last Taken 12/19] Montelukast Sodium [Singulair 10 mg (*)] 10 mg PO DAILY 12/09/16 [Last Taken ] Temazepam [Restoril 15 MG (*)] 15 mg PO HS 12/09/16 [Last Taken 12/18/16] metFORMIN HCL [Glucophage 500 mg (*)] 500 mg PO BIDMEAL 12/09/16 [Last Taken ] - NPO status NPO Status: no food or drink >8 hours - Anes Hx Anes Hx: no prior problems - Smoking Hx Smoking Status: Former smoker - Alcohol Use Alcohol Use: Rarely ANE Labs/Vital Signs - Labs Result Diagrams: 12/30/16 07:30 12/30/16 07:30 - Vital Signs Blood Pressure: 111/81 Heart Rate: 79 Respiratory Rate: 14 O2 Sat (%): 14 Height: 175.26 cm Weight: 78.5 kg ANE Physical Exam - Airway Mallampati Score: Class 2 Mouth exam: normal dental/mouth exam, dentures, dejesus - Pulmonary Pulmonary: no respiratory distress - Cardiovascular Cardiovascular: regular rate and rhythym - ASA Status ASA Status: IV ANE Anesthesia Plan Anesthesia Plan: general endotracheal anesthesia
[2016-12-30] MEDS ORDERED: MIDAZOLAM 2 MG/2 ML VIAL IVP ONE (08:28)
[2016-12-30] MEDS ORDERED: PROPOFOL 200 MG/20 ML VIAL ONE (08:39)
[2016-12-30] MEDS ORDERED: fentaNYL 100 MCG/2 ML INJ ONE (08:39)
[2016-12-30] MEDS ORDERED: ROCURONIUM 100 MG/10 ML VIAL ONE (08:39)
[2016-12-30] MEDS ORDERED: LIDOCAINE 2% 5 ML SDV ONE (08:39)
[2016-12-30] MEDS ORDERED: BACITRACIN IRRIGATION/NS 50,000 UNITS/1,000 ML BTL IRR ONE (09:06)
[2016-12-30] MEDS ORDERED: ceFAZolin 2 GM/DEXTROSE 100 ML IV ONE (09:06)
[2016-12-30] MEDS ORDERED: ONDANSETRON 4 MG/2 ML VIAL ONE (10:40)
[2016-12-30] MEDS ORDERED: SUGAMMADEX SODIUM 200 MG/2 ML VIAL IVP ONE (10:40)
[2016-12-30] MEDS ORDERED: ONDANSETRON 4 MG/2 ML VIAL IVP PRN ×2 (10:53→11:10)
[2016-12-30] MEDS ORDERED: ACETAMINOPHEN 325 MG TAB PO PRN (10:53)
--- NOTE | 2016-12-30 10:53 | EPPROC ---
Electrophysiology Procedure Note: ELECTROPHYSIOLOGIC STUDY AND CATHETER MEDIATED ABLATION OF FAST/SLOW (ATYPICAL ) AV LAZARO REENTRY TACHYCARDIA PROCEDURES PERFORMED: 24630-04 EP evaluation with RA/RV/LA pace/record, with arrhythmia induction 94791-61 EP evaluation with RA/RV pace record, insert/reposition catheter, with arrhythmia induction 71458 Intracardiac catheter ablation, SVT arrhythmogenic focus 00065 3D mapping Fluoroscopy INDICATION: PROCEDURE: Catheters & Anesthesia: The patient arrived in the Electrophysiology Laboratory in the fasting state. The right clavicular region, right groin, and left groin area were prepped and draped in the usual sterile manner. Anesthesiologist administered general anesthesia. Appropriate non-invasive blood pressure, pulse oximetry and end- tidal CO2 monitoring was established. All catheters were placed percutaneously using the modified Seldinger technique , and advanced into position under fluoroscopic guidance. One #6 [place] hexapolar non-deflectable electrode catheter was inserted into the right atrial appendage via the left femoral vein (2mm spacing; except the proximal ring which was 25cm from the tip used for unipolar recordings). One #7 [place] deflectable octapolar electrode catheter was advanced to the His-bundle position via the left femoral vein (2mm spacing). One #7 [place] deflectable quadrapolar catheter was advanced to the anteroseptal right ventricle via the right femoral vein. One #7 [place] deflectable catheter with 10 pairs of electrodes was placed via the right femoral vein into the coronary sinus. Heparin 4000 U was given. Programmed stimulation was performed from the right atrium, right ventricle and coronary sinus (left atrium). Parahisian pacing demonstrated constant H-A interval with changing V-A intervals and stimulus-A intervals during capture and loss of capture of proximal RBB proving retrograde conduction over AV node. AVNRT was induced easily during infusion of isoproterenol 1-2 mcg/min. Ventricular extrastimuli delivered during tachycardia without altering antegrade His bundle activation did not advance next atrial potential, indicating that the tachycardia was not utilizing an accessory pathway for retrograde conduction. VA interval was 150 ms. Tachycardia started with long AH reproducibly, changes in HH interval preceded AA interval. Entrainment was consistent with AVNRT. There was intermittent WCT with LBBB aberrancy during SVT and also there was intermittent 2:1 AV conduction during AVNRT. Activation pattern was c.w. fast/slow (atypical) AVNRT. A #8 [place] deflectable quadrapolar electrode catheter (2mm-5mm-2mm spacing) with 4 mm tip electrode and sensor for the 3D mapping Carto system was advanced to the right atrium. 3 D mapping of the inter-atrial septum and coronary sinus was performed and location of the AV node was marked. A SL2 sheath was used. Mapping was performed during SVT, earliest retrograde atrial activation was seen in slow pathway area at anteroapical edge of CS ostium. RF application at this site terminated SVT and rendered it non- inducible. Further RF applications were delivered in sinus rhythm. RF applications were delivered to the region between the tricuspid annulus and the coronary sinus ostium, at the level of the upper edge of the coronary sinus ostium. Radiofrequency applications were also delivered along the roof of the proximal coronary sinus. Junctional rhythm occurred briefly once. Programmed stimulation was continued post ablation at baseline and during graded doses of isoproterenol upto 4mcg/min. Sustained AVNRT was not inducible. There were no echo beats. The catheters were removed. The long sheath was changed to a short 9 Fr sheath. The patient was transferred to the cardiovascular holding area in stable condition. Vascular access sheaths were removed in the holding area. There were no apparent complications. Results: A. Spontaneous Intervals: Pre ablation SCL 730 ms AH 65 ms HV 50 ms Post ablation SCL 690 ms AH 60 ms HV 50 ms B. Antegrade AV lazaro function (decremental pacing) Pre ablation FPERP 340 ms WBB CL 330 ms Post ablation FPERP 320 ms WBB CL 310 ms C. Retrograde AV lazaro function (decremental pacing) Pre ablation FPERP 350 ms WBB CL 340 ms D. Arrhythmias: Sustained slow/fast AVNRT Cycle length 280 ms, AH interval 220 ms, SANDRA interval 60 ms VA interval 150 ms CONCLUSIONS 1. Atypical (fast/slow) AV lazaro reentrant tachycardia. 2. Successful ablation of the slow AV lazaro pathway with elimination of 1:1 antegrade conduction over the slow AV lazaro pathway, all retrograde conduction over the slow AV lazaro pathway and the inducibility of AVNRT. 3. No complications. Patient Problems: Problems Problem Status Onset Supraventricular tachycardia Acute Ventricular tachycardia Acute Lightheadedness Acute Migraine headache Acute Transient cerebral ischemia Acute
[2016-12-30] MEDS ORDERED: ACETAMINOPHEN 500 MG TAB PO PRN (11:10)
[2016-12-30] MEDS ORDERED: HYDROCODONE/APAP 5/325 TAB PO PRN (11:10)
[2016-12-30] MEDS ORDERED: NALOXONE HCL 0.4 MG/ML INJ IVP PRN (11:10)
[2016-12-30] MEDS ORDERED: PROMETHAZINE HCL 25 MG/ML INJ IVP PRN (11:10)
[2016-12-30] MEDS ORDERED: fentaNYL 100 MCG/2 ML INJ IVP PRN (11:10)
[2016-12-30] MEDS ORDERED: OXYCODONE/APAP 5/325 TAB PO PRN (11:10)
[2016-12-30] MEDS ORDERED: ALBUTEROL 3 ML DEYVIAL IH PRN (11:10)
--- NOTE | 2016-12-30 11:11 | POSTANESTH ---
Post Anesthetic Evaluation Cardiovascular Status: Normal, Stable Respiratory Status: Normal, Stable Level of Consciousness/Mental Status: Can Participate in Eval Pain Control: Adequate, Prn Tx Ordered Nausea/Vomiting Control: Adequate, Prn Tx Ordered Complications Possibly Related to Anesthesia: None Noted
[2016-12-30] MEDS ORDERED: ATROPINE SULFATE 1 MG/10 ML SYR ONE (11:13)
--- NOTE | 2016-12-30 12:12 | CPEKG ---
Heart Rate: 84 RR Interval: 714 P-R Interval: 176 QRSD Interval: 100 QT Interval: 388 QTC Interval: 459 P [place]: 53 QRS [place]: -55 T Wave [place]: 29 EKG Severity - ABNORMAL ECG - EKG Impression: SINUS RHYTHM EKG Impression: LEFT ANTERIOR FASCICULAR BLOCK Electronically Signed By: Clayton Page 30-Dec-2016 13:04:12
[2016-12-30] MEDS ORDERED: HYDROCODONE/APAP 5/325 TAB ONE (13:09)
[2016-12-30] MEDS: metFORMIN HCL 500 MG TAB PO SCH (17:52)
[2016-12-30] MEDS ORDERED: TEMAZEPAM 15 MG CAP PO SCH (21:00)
[2016-12-30] MEDS: METOPROLOL TARTRATE 25 MG TAB PO SCH (21:30)
[2016-12-31 04:22] LABS: % IMMATURE GRANULYOCYTES 0.3 % (0.0-1.1); ABSOLUTE IMMATURE GRANULOCYTES 0.02 10^3/uL (0.00-0.10); ADD DIFF? NO; ADD MORPH? NO; ADD SCAN? NO; ATYPICAL LYMPHOCYTE FLAG 10 (0-99); FRAGMENT RBC FLAG 0 (0-99); HEMATOCRIT 34.6 % (40.0-51.0); HEMOGLOBIN 11.8 g/dL (13.7-17.5); LEFT SHIFT FLG 0 (0-99); LIPEMIA HEMOLYSIS FLAG 90 (0-99); MEAN CELL HEMOGLOBIN 32.8 pg (27.9-34.1); MEAN CELL HEMOGLOBIN CONCENTR. 34.1 g/dL (32.4-36.7); MEAN CELL VOLUME 96.1 fL (81.5-99.8); MEAN PLATELET VOLUME 11.6 fL (8.7-11.7); PLATELET CLUMPS FLAG 20 (0-99); PLATELET COUNT 191 10^3/uL (150-400); RED CELL DISTRIBUTION WIDTH 13.4 % (11.5-15.2)
[2016-12-31 04:33] LABS: INR 1.03 (0.83-1.16); PROTIME(PATIENT) 13.4 SEC (12.0-15.0)
[2016-12-31 04:40] LABS: ANION GAP 7 mEq/L (8-16); CALCIUM 8.2 mg/dL (8.5-10.4); CARBON DIOXIDE 24 mEq/l (22-31); CHLORIDE 106 mEq/L (97-110); CREATININE 0.9 mg/dL (0.7-1.3); GLOMERULAR FILTRATION RATE > 60; GLUCOSE 107 mg/dL (70-100); SODIUM 137 mEq/L (134-144)
[2016-12-31 04:53] LABS: CK-MB INTERPRETATION NEGATIVE (NEGATIVE); CREATINE KINASE-MB FRACTION 1.95 ng/mL (0.00-3.19)
[2016-12-31] MEDS: metFORMIN HCL 500 MG TAB PO SCH (07:51)
[2016-12-31] MEDS: METOPROLOL TARTRATE 25 MG TAB PO SCH (07:51)
[2016-12-31 08:05] VITALS: BP 128/78; PULSE 75; RESP 18; TEMP 99.4; O2SAT 93
[2016-12-31] MEDS ORDERED: MONTELUKAST SODIUM 10 MG TAB PO SCH (09:00)
[2016-12-31] MEDS ORDERED: LOSARTAN POTASSIUM 50 MG TAB PO SCH (09:00)
[2016-12-31] MEDS ORDERED: ATORVASTATIN CALCIUM 40 MG TAB PO SCH (09:00)
[2016-12-31] MEDS ORDERED: ASPIRIN EC 81 MG TAB PO SCH (09:00)
[2016-12-31] MEDS ORDERED: FINASTERIDE 5 MG TAB PO SCH (09:00)
[2016-12-31] MEDS ORDERED: HYDROCHLOROTHIAZIDE 25 MG TAB PO SCH (09:00)
--- NOTE | 2016-12-31 09:03 | CPEKG ---
Heart Rate: 74 RR Interval: 811 P-R Interval: 168 QRSD Interval: 98 QT Interval: 368 QTC Interval: 409 P [place]: 33 QRS [place]: -54 T Wave [place]: 10 EKG Severity - ABNORMAL ECG - EKG Impression: SINUS RHYTHM EKG Impression: LEFT ANTERIOR FASCICULAR BLOCK Electronically Signed By: Clayton Page 31-Dec-2016 10:51:53
--- NOTE | 2016-12-31 10:06 | ECHO ---
[email or web address] [address] [address] Main: [phone] Fax: Transthoracic Echocardiogram Name: BETTY CERNA MR#: [id number] Study Date: 12/31/2016 Study Time: 08:06 AM Date of : 1950 Age: 66 year(s) Height: 175.3 cm (69 in.) Weight: 78.47 kg (173 lb.) BSA: 1.94 m2 Gender: Male Examination: Echo Indication: Post EP Image Quality: Contrast: Requested by: Clayton Page BP: 128 mmHg/78 mmHg Heart Rate: Rhythm: Normal sinus rhythm Indication: Post EP Procedure Staff Machine Tester: Dina Connors Reading Physician: Clayton Page Reading Physician: Johanna Mendoza Conclusions: Normal size left ventricle. Normal global systolic LV function (EF 57 %). Aortic Valve: Mild aortic valve regurgitation is present. No pericardial effusion. Measurements: Chambers Valvular Assessment AV/MV Valvular Assessment TV/PV Normal Normal Normal Name Value Range Name Value Range Name Value Range Ao Caridad (MM): 2.9 cm (2.2 cm-3.7 AV Vmax: 1.44 m/s (1 m/s-1.7 PV Vmax: 0.86 cm/s (0.6 m/s-0.9 cm) m/s) m/s) IVSd (2D): 0.9 cm (0.6 cm-1.1 AV maxP mmHg ( - ) PV PGmax: 3 mmHg ( - ) cm) LVOT Vmax: 1.14 m/s (0.7 m/s-1.1 LVDd (2D): 4.5 cm (4.2 cm-5.9 m/s) cm) AR (PHT): 640 ms ( - ) LVDs (2D): 2.6 cm (2.1 cm-4 MV E Vmax: 0.89 cm/s ( - ) cm) MV A Vmax: 0.48 cm/s ( - ) LVPWd (2D): 0.9 cm (0.6 cm-1 MV E/A: 1.85 ( - ) cm) LVEF (BP): 57 % (>=55 %) RVDd(2D): 3.0 cm (1.9 cm-3.8 cmmm) Continued Measurements: Chambers Valvular Assessment AV/MV Name Value Name Value LA Area: 18.3 cm2 MV DecTime: 183 LA Volume: 53 ml MV E' Septal: 0.08 m/s Patient: BETTY CERNA Study Date: 12/31/2016 Page 1 of 2 08:06 AM LA Volume Index: 27.3 ml/m2 MV E/E' Septal: 11.80 RA Area: 16.5 cm2 MV E/E' Lateral: 7.60 AR Vmax: 3.69 cm/s Additional Vessels Name Value Ao Ascendin.5 cm Findings: Left Ventricle: Normal size left ventricle. No LV hypertrophy. Normal global systolic LV function (EF 57 %). Normal diastolic LV function. Right Ventricle: Normal size right ventricle. Left Atrium: The left atrium is normal in size. Right Atrium: The right atrium is upper limits of normal for size. Known PFO not appreciated on todays exam. Mitral Valve: The mitral valve is normal in appearance and function. Trivial to mild mitral regurgitation. Aortic Valve: The aortic valve is normal in appearance and function. Mild aortic valve regurgitation is present. Tricuspid Valve: The tricuspid valve is normal in appearance and function. Trivial tricuspid valve regurgitation. Pulmonary artery pressure is not obtained due to inadequate TR jet. Pulmonic Valve: The pulmonic valve is normal in appearance and function. Aorta: The aorta is normal. IVC: The IVC is dilated. No foreign body in inferior vena cava. Pericardium: No pericardial effusion. (No Signature Object) Patient: BETTY CERNA Study Date: 12/31/2016 Page 2 of 2 08:06 AM [id number]
--- NOTE | 2016-12-31 10:49 | ASMTCMCOM ---
CM Note CM Note Notes: Chart reviewed, no needs identified. C/M available should needs arise. Date Signed: 12/31/2016 10:48 AM Electronically Signed By:Susan Crabtree RN
--- NOTE | 2016-12-31 14:50 | ASDISCHSUM ---
Discharge Information Plan Status:Home with No Needs Medically Cleared to Leave:12/31/2016 Discharge Date:12/31/2016 11:36 AM CM D/C Disposition:Home, Routine, Self-Care ADT D/C Disposition:Home, Routine, Self-Care Projected Discharge Date:12/31/2016 11:36 AM Transportation at D/C:Family Discharge Delay Reason: Follow-Up Date:12/31/2016 11:36 AM Discharge Slot: Final Diagnosis: Placement Information Patient Contact Information Contact Name:DERICK Relationship: Address:[address] [place] City:[place] Alternate Phone: State/Zip Code:[place] [address] Email: Financial Information Financial Class: Primary Plan Desc:MEDICARE OUTPATIENT Primary Plan Number:[id number] Secondary Plan Desc:[employer] Secondary Plan Number:[id number] Assessment Information [facility] CM Progress Note CM Note CM Note Notes: Chart reviewed, no needs identified. C/M available should needs arise. Date Signed: 12/31/2016 10:48 AM Electronically Signed By:Susan Crabtree RN Intervention Information Intervention Type:*TAMIKO-Signed Date of Service:12/31/2016 10:10 AM Patient Type:Observation Staff Member:Dottie Martin Hours: Discipline: Severity: Comment:
--- NOTE | 2016-12-31 19:40 | GDS ---
[f rep st] DISCHARGE SUMMARY ADMITTING DIAGNOSES: 1. Supraventricular tachycardia. 2. Coronary artery disease. DISCHARGE DIAGNOSES: 1. Supraventricular tachycardia, status post ablation of a atypical fast/slow AVNRT. 2. Coronary artery disease. BRIEF HISTORY: The patient was referred to Dr. Page by Dr. Soto. He had been experiencing palpitations on and off for few months. Holter monitor demonstrated wide-complex tachycardia for 29 seconds. He underwent a coronary angiogram that demonstrated normal LV function with severe distal LAD and distal RCA disease that was not amenable to PCI, and is treated medically. HOSPITAL COURSE: The patient underwent successful ablation of the slow AV hailey pathway by Dr. Page. This eliminated one-to-one antegrade conduction over slow AV hailey pathway. All retrograde conduction over slow AV hailey pathway was eliminated and there was no inducibility of AVNRT post ablation. He did well overnight without any SVT. He denies any chest pain, pressure, or tightness. He denies any pain or bleeding at his groin sites or pain in his legs. DIAGNOSTIC TESTS: A 12-lead EKG demonstrates sinus rhythm with left anterior fascicular block. No ST-T wave changes. Echocardiogram demonstrates normal LV function with ejection fraction 57% and no pericardial effusion. LAB WORK: WBC 7.2, hemoglobin 11.8, hematocrit 34.6, platelets 191K, PT is 13.4 , INR is 1.03, sodium 137, potassium 4.0, chloride 106, bicarb 24, BUN 18, creatinine is 0.9, glucose 107. CK is 266, CK MB fraction is 1.95, percent is 0.9. Troponin is 0.240; this is elevated and to be expected post ablation. PHYSICAL EXAM: VITAL SIGNS: Blood pressure is 128/78, pulse 75, respirations 18, temperature 37.4, O2 saturation is 93% on room air. GENERAL: He is alert and oriented. Sitting up in bed, in no acute distress. LUNGS: Clear to auscultation. CARDIAC: Regular rate and rhythm without murmur, rub, or gallop. ABDOMEN: Soft and nontender. Groin sites are without bleeding or hematoma. EXTREMITIES: Warm. No discoloration. Bilateral +2 pedal pulses. DISCHARGE MEDICATIONS: Please see discharge home medication reconciliation. Of note, he is taking aspirin for his coronary artery disease already. DISCHARGE INSTRUCTIONS: Post ablation activity restrictions were reviewed with the patient. He was given verbal and written instructions on these. Followup appointment is on February [address] Page at 2:30 p.m. /[id number] [email or web address]
== END 2016-12-31 11:36 | disposition home or self-care (01) ==
LOC: FCATH 06:55 → F2W 10:53
PROVIDERS: ADMIT Internal Medicine Cardiovascular Disease; ATTEND Internal Medicine Cardiovascular Disease
PROC: 5A1213Z Performance of Cardiac Pacing, Intermittent (ICD-10-PCS; principal; 2016-12-30)
PROC: 02K83ZZ Map Conduction Mechanism, Percutaneous Approach (ICD-10-PCS; principal; 2016-12-30)
PROC: 02563ZZ Destruction of Right Atrium, Percutaneous Approach (ICD-10-PCS; principal; 2016-12-30)
DX: I47.1 Supraventricular tachycardia (principal); I25.10 Atherosclerotic heart disease of native coronary artery without angina pectoris
CPT/HCPCS: 93005; 93306; 93613; 93621; 93623; 93653; C1730; C1731; C1732; C1893; J1644; J2250; J2405; J2704; J3010; J0461; J0690

== ENCOUNTER → 2017-01-07 | Outpatient (CLI) | payer OTHER | LOC: CIMAGING 12:32 | PROVIDERS: ATTEND Internal Medicine Cardiovascular Disease | DX: R05 Cough (principal) | CPT/HCPCS: 71020-PO ==

== ENCOUNTER → 2017-05-27 | Outpatient (CLI) | payer OTHER | LOC: FIMAGING 11:58 | PROVIDERS: ATTEND Family Medicine | DX: M48.02 Spinal stenosis, cervical region (principal); M50.323 Other cervical disc degeneration at C6-C7 level; M43.12 Spondylolisthesis, cervical region ==

== ENCOUNTER → 2017-09-24 | Outpatient (CLI) | payer OTHER | LOC: FIMAGING 08:12 | PROVIDERS: ATTEND Internal Medicine Gastroenterology | DX: R13.10 Dysphagia, unspecified (principal); K22.5 Diverticulum of esophagus, acquired; K22.4 Dyskinesia of esophagus; K21.9 Gastro-esophageal reflux disease without esophagitis ==